=== PATIENT | female | born 1970 | race Asian ===

== ENCOUNTER 2017-12-08 10:53 | Day surgery (SDC) | payer OTHER ==
[2017-12-08] MEDS ORDERED: MIDAZOLAM 1 MG/ML 2 ML INJ (12:48)
[2017-12-08] MEDS ORDERED: PROPOFOL 20 ML ×2 (12:48→13:18)
[2017-12-08] MEDS ORDERED: ONDANSETRON 4 MG INJ (13:47)
== END 2017-12-08 14:32 | disposition home or self-care (01) ==
LOC: GIL 10:53
DX: D12.5 Benign neoplasm of sigmoid colon (principal); K64.8 Other hemorrhoids; E11.9 Type 2 diabetes mellitus without complications; I10 Essential (primary) hypertension; E78.5 Hyperlipidemia, unspecified
CPT/HCPCS: 45380; 82962; 88305